=== PATIENT | male | born 1960 | race Caucasian/White ===

== ENCOUNTER 2018-11-23 14:38 | Observation (INO) | payer MEDICARE ==
[~2018-11-23] VITALS: Ht 190.5 cm; Wt 81.1 kg
[~2018-11-23 14:38] MED LIST: ALBU90OI INH; BUSP15 PO; PREG100 PO; RISP1 PO
[2018-11-23] MEDS ORDERED: AMIT10 PO (15:00)
[2018-11-23] MEDS ORDERED: LITH300C PO (15:00)
[2018-11-23] MEDS ORDERED: TRIDERM28.4 GM TOP (15:00)
[2018-11-23 15:55] LABS: BASOPHILS ABSOLUTE AUTO 0.06 K/mm3 (0.00-0.23); BASOPHILS PERCENT AUTO 1 % (0-2); EOSINOPHILS ABSOLUTE AUTO 0.06 K/mm3 (0.00-0.68); EOSINOPHILS PERCENT AUTO 1 % (0-6); Hematocrit 42.8 % (37.0-53.0); Hemoglobin 13.8 g/dL (13.5-17.5); IMMATURE GRAN ABSOLUTE AUTO 0.03 K/mm3 (0.00-0.10); IMMATURE GRAN PERCENT AUTO 0 % (0-1); LYMPHOCYTES ABSOLUTE AUTO 1.37 K/mm3 (0.84-5.20); LYMPHOCYTES PERCENT AUTO 11 % (21-46); MONOCYTES ABSOLUTE AUTO 0.78 K/mm3 (0.16-1.47); MONOCYTES PERCENT AUTO 7 % (4-13); Mean Corpuscular HGB 28.2 pg (26.0-34.0); Mean Corpuscular HGB Conc 32.2 g/dL (31.5-36.5); Mean Corpuscular Volume 87 fL (80-100); Mean Platelet Volume 11.5 fL (9.1-12.4); NEUTROPHILS ABSOLUTE AUTO 9.75 K/mm3 (1.96-9.15); NEUTROPHILS PERCENT AUTO 81 % (41-73); Platelet Count 224 K/mm3 (150-400); RDW Coefficient Variation 14.7 % (11.7-14.2); RDW Standard Deviation 47.2 fL (35.1-46.3); White Blood Cell Count 12.05 K/mm3 (4.00-11.30)
[2018-11-23 16:12] LABS: Alanine Aminotransfer (ALT/SGP 13 U/L (12-78); Albumin, Blood 3.6 g/dL (3.4-5.0); Albumin/Globulin Ratio 1.3 (0.8-1.8); Alk Phos 84 U/L (50-136); Anion Gap 2 mmol/L (6-16); Aspartate Aminotrans (AST/SGOT 9 U/L (12-37); Bilirubin, Total 0.4 mg/dL (0.1-1.0); Blood Urea Nitrogen 18 mg/dL (8-24); Bun/Creatinine Ratio 24.8 (12.0-20.0); CO2, Blood 29 mmol/L (21-32); Calcium, Blood 9.2 mg/dL (8.5-10.1); Chloride, Blood 107 mmol/L (98-108); Creatinine, Blood 0.73 mg/dL (0.60-1.20); Ethanol (Alcohol), Blood, Med <3 mg/dL; Globulin, Blood 2.8 g/dL (2.2-4.0); Glomerular Filtration Rate >60 (60-); Glucose, Blood 90 mg/dL (70-99); Potassium, Blood 3.6 mmol/L (3.5-5.5); Sodium, Blood 138 mmol/L (136-145); Total Protein, Blood 6.4 g/dL (6.4-8.2)
[2018-11-23 16:16] LABS: Acetaminophen, Random <2.0 ug/mL (10.0-30.0); Salicylate 4.7 mg/dL (2.8-20.0)
[2018-11-23 16:20] LABS: Lithium 1.06 mmol/L (0.60-1.20)
[2018-11-23 16:37] LABS: Source, Urine Clean Catch
[2018-11-23 16:46] LABS: Appearance, Urine Hazy (Clear); Bilirubin, Urine Neg (Neg); Blood, Urine 5+ (Neg); Color, Urine Amber (P-Yellow); Glucose Qualitative, Urine Neg (Neg); Ketones, Urine 3+ (Neg); Leukocyte Esterase, Urine 1+ (Neg); Nitrite, Urine Neg (Neg); Protein, Urine 2+ (Neg); Specific Gravity, Urine 1.025 (1.003-1.022); Urobilinogen, Urine 1+ (Normal)
[2018-11-23 17:11] LABS: Squamous Epithelial Cells Not Seen /hpf (Few)
[2018-11-23 17:12] LABS: Bacteria Rare /hpf; Mucus Light (0-Heavy); Red Blood Cells, Urine TNTC /hpf (0-2)
[2018-11-23 17:28] LABS: U Amphetamine Screen Not Detected; U Barbituate Screen Not Detected; U Benzodiazapine Screen Not Detected; U Buprenorphine Screen Not Detected; U Cannabinoids Screen DETECTED; U Cocaine Screen Not Detected; U Methadone Screen Not Detected; U Methamphetamine Screen Not Detected; U Opiates Screen Not Detected; U Oxycodone Screen Not Detected; U Phencyclidine Screen Not Detected; U Propoxyphene Screen Not Detected
[2018-11-23 23:17] LABS: Base Excess Venous 12.9 mmol/L; Bicarbonate Venous 34.9 mmol/L (24.0-30.0); PCO2 Venous 52.3 mmHg (38-42); PO2 Venous 172 mmHg (38-42); pH Blood Venous 7.46 (7.34-7.37)
[2018-11-23 23:28] LABS: Anion Gap 4 mmol/L (6-16); Blood Urea Nitrogen 20 mg/dL (8-24); Bun/Creatinine Ratio 28.7 (12.0-20.0); CO2, Blood 34 mmol/L (21-32); Calcium, Blood 8.3 mg/dL (8.5-10.1); Chloride, Blood 105 mmol/L (98-108); Glomerular Filtration Rate >60 (60-); Glucose, Blood 228 mg/dL (70-99); Potassium, Blood 3.4 mmol/L (3.5-5.5); Salicylate 3.8 mg/dL (2.8-20.0); Sodium, Blood 143 mmol/L (136-145)
--- NOTE | 2018-11-24 04:20 | NUR ---
ASSUMING CARE OF PT AT THIS TIME. PT REPORT RECEIVED AT BEDSIDE WITH OFFGOING ED NURSE, YANELY VIA TELEPHONE. WAITING FOR PT TRANSFER FROM ED TO ICU AT THIS TIME.
--- NOTE | 2018-11-24 04:50 | NUR ---
PT TRANSFERRED FROM ED TO ICU AT THIS TIME VIA ED BED.
--- NOTE | 2018-11-24 05:55 | NUR ---
POISON CONTROL POISON CONTROL CALLED ICU AT THIS TIME. POISON CONTROL REQUESTED STAT LIBRIUM LEVELS, STAT VBG, STAT CHEM 8, AND STAT EKG. WAITING FOR TAR HEEL AT THIS TIME.
--- NOTE | 2018-11-24 06:08 | NUR ---
SHIFT ASSESSMENT PT CALM, QUIET, COOPERATIVE, RESPONDS TO VERBAL STIMULI, SPONT OPENS EYES, A&O TO SELF, FOLLOWS COMMANDS, LETHARGIC, DROWSY, QUICKLY FALLS BACK ASLEEP WITH DECREASED STIMULI, UNABLE TO ANSWER MOST QUESTIONS. GARBLED, SLURRED, INCOMPREHENSIBLE SPEECH. SLOW TO RESPOND. UNABLE TO COMPLETE PT HX D/T PT'S INABILITY TO ANSWER QUESTIONS. PT ON SI PRECAUTIONS. PT STATES "I DON'T KNOW" TO CURRENT SI. SENSATION INTACT BUE'S. PT C/O N/T TO BLE'S. PT LUBIN. WEAKN MOVEMENT NOTED. PT ASSISTS WITH TURNS AND ABLE TO TURN SELF IN BED. PT STATES HX OF N/T TO BLE'S. NO S/SX OF PAIN/DISCOMFORT NOTED. PT DENIES PAIN/DISCOMFORT. LUNGS CLEAR, LOWER LOWER LOBES. SHALLOW BREATHING. PT ON RA. OXY SAT >95%. RR 12 TO 19. DENIES SOB. NO COUGHING. AFEBRILE. HR 50'S. SINUS BRADYCARDIA. BP STABLE - SEE VS FS. HIRAM COMPLETING EKG AT THIS TIME. STRONG PULSES. WARM, PINK SKIN. BILAT FT TRC EDEMA. WOUNDS BILAT FT - SEE PICS. HYPOACTIVE BT X4 QUADRANTS. ABD SOFT, NONTENDER, MILD DIST (PT STATES ABD DIST IS NORMAL). NO N/V. NO BM. PT VOIDS IN URINAL. NO UO AT THIS TIME. PIV X2. SODIUM BICARB AT 150 ML/HR. PER REPORT - SODIUM BICARB DRIP TO BE D/C AFTER THIS BAG. SMALL BRAKE FORM OPERATOR IN ROOM COMPLETING STAT LABS. POISON CONTROL PLANNING TO CALL ICU THIS AM FOR LAB RESULTS AND EKG RESULTS. WILL CONT TO MONITOR PT AND WILL PROVIDE BEDSIDE REPORT TO ONCOMING NURSE THIS AM.
[2018-11-24 06:22] LABS: Base Excess Venous 10.6 mmol/L; Bicarbonate Venous 32.9 mmol/L (24.0-30.0); PCO2 Venous 43.8 mmHg (38-42); PO2 Venous 48.6 mmHg (38-42)
[2018-11-24 06:44] LABS: Anion Gap 4 mmol/L (6-16); Blood Urea Nitrogen 18 mg/dL (8-24); Bun/Creatinine Ratio 27.7 (12.0-20.0); CO2, Blood 33 mmol/L (21-32); Calcium, Blood 8.4 mg/dL (8.5-10.1); Chloride, Blood 106 mmol/L (98-108); Creatinine, Blood 0.65 mg/dL (0.60-1.20); Glomerular Filtration Rate >60 (60-); Glucose, Blood 114 mg/dL (70-99); Potassium, Blood 3.2 mmol/L (3.5-5.5); Sodium, Blood 143 mmol/L (136-145)
--- NOTE | 2018-11-24 06:52 | NUR ---
DR. BENÍTEZ CALLED DR. BENÍTEZ AT 0645. DR. BENÍTEZ CALLED ICU BACK AT THIS TIME. INFORMED DR. BENÍTEZ OF AM LABS. DR. BENÍTEZ ORDERD POTASSIUM CHLORIDE 40 MEQ IVPB. WAITING FOR MEDICATION FROM PHARMACY AT THIS TIME.
[2018-11-24 06:54] LABS: Lithium 0.63 mmol/L (0.60-1.20)
--- NOTE | 2018-11-24 07:30 | NUR ---
AM ASSESSMENT: PT SLEEPS WHEN UNDISTURBED, BUT AWAKENS EASILY TO VERBAL STIMULI. PT ORIENTED TO SELF/PLACE. UNABLE TO STATE DATE. ABLE TO FOLLOW SIMPLE DIRECTIONS. PT WITH CONTINUOUS STUTTER (PT REPORTS WORSE THAN BASELINE), AND PT HAS DIFFICULTY COMPLETING HIS THOUGHTS TO ANSWER QUESTIONS. APPEARS TO BE WORD SEARCHING. PT REPORTS HE DOES STILL HAVE FEELINGS OF WANTING TO HARM HIMSELF. PT MENTIONS SEVERAL TIMES THAT HE DOES NOT LIKE HAVING TO STAY AT A "[facility] THIS RN INQUIRED WHY HE FELT THIS WAY AND THE PT STATES, "I DRESS LIKE A WOMAN." PT REPORTS HE WANTS TO BE CALLED JACKIE WHEN ASKED. SOCIAL SERVICE CONSULT PLACED FOR ADD'L POSSIBLE RESOURCES FOR LIVING SITUATION. UNABLE TO COMPLETE HEALTH HX/MEDS, AND COMPLETE TEL-PYSCH AT THIS TIME PT IS STILL HAVING DIFFICULTY WITH SPEECH AND COMPLETE MOST THOUGHTS. ROOM HAS BEEN CLEARED FOR SUICIDE PRECAUTIONS AND PT ARE BEING MONITORED VIA CENTRAL MONITORING SYSTEM. LUNGS ARE CLEAR T/O BILATERALLY. SATS >90% ON RA. HR REGULAR, SB 40-50'S. PT WITH PROLONGED QT, WHICH CAN BE A DIRECT RESULT OF O/D ON LYRICA (PER POSION CONTROL). ALSO NEED TO WATCH FOR SEVERE YAMILA, WIDENING QRS. NO VOID YET. URINAL PLACED AT THE BEDSIDE. CALL LIGHT WITHIN REACH. PT ENCOURAGED TO USE IT, HE HAS CALLED OUT FOR NEEDS THUS FAR. -FULL CODE STATUS -CONTINUE TO MONITOR VIA CENTRAL MONITORING STATION -TELE-PYSCH CONSULT WHEN PT ABLE -MONITOR FOR ABOVE CARDIAC CONCERNS
--- NOTE | 2018-11-24 14:00 | NUR ---
PT UPDATE: PRECOMMITTMENT WET MIXER HERE TO ASSESS PT. DISCUSSED WITH HER WHAT PT HAS SHARED WITH THIS RN ABOUT CONTINUED SI. SHE REPORTS SHE WILL BE BACK TOMORROW TO CHECK ON PT AND PROGRESSION. PT SHARED WITH HER THAT ONE OF HIS DR'S RECOMMENDED THAT HE BE COMMITTED FOR 6 MONTHS.
--- NOTE | 2018-11-24 17:24 | NUR ---
SHIFT SUMMARY: PT MENTATION SLIGHTLY IMPROVING. PT CONTINUES TO CONTINUOUSLY STUTTER WITH SPEECH, HOWEVER, PT IS ABLE TO GET OUT HALF SENTENCES IN BETWEEN STUTTERING, INSTEAD OF ONE WORD. PT SEEMS THOUGH HE IS ABLE TO COMPLETE THOUGHTS EASIER, HOWEVER, CONTINUES TO WORD SEARCH OR STATE HE IS HAVING DIFFICULTY SPEAKING WHAT HE IS THINKING. PT CONTINUES TO REPORT SI, AND REPORTS IF HE WERE TO BE DISCHARGED THAT HE WOULD HURT HIMSELF AGAIN. TELE-PYSCH CONSULT NOT COMPLETE PT WOULD HAVE DIFFICULTY ANSWERING THE QUESTIONS. LUNGS REMAIN CLEAR, SATS >90% ON RA. HR REGULAR, SB 50'S RANGE. QT NOT LONG THIS EVENING. PT VOIDS CLEAR, YELLOW URINE PER URINAL. -2 HOLD -FULL CODE -PENDING PYSCH CONSULT
--- NOTE | 2018-11-24 19:04 | NUR ---
REPORTED OFF TO GEORGE VALDIVIA WHOM WILL ASSUME CARE OF THIS PT.
--- NOTE | 2018-11-24 19:15 | NUR ---
ASSUMING CARE OF PT AT THIS TIME. PT REPORT RECEIVED AT BEDSIDE WITH OFFGOING NURSE, AARON VAZQUEZ. PT LAYING IN BED, WATCHING TELEVISION UPON ENTERING THE ROOM. VS STABLE - SEE VS FS. PT DOES NOT APPEAR TO BE IN DISTRESS AT THIS TIME. WILL REVIEW PLAN OF CARE.
--- NOTE | 2018-11-24 19:30 | NUR ---
PT REPORT PROVIDED TO ONCOMING NURSE, TRACI VAZQUEZ. WAITING FOR PT TRANSFER FROM ICU TO PCU AT THIS TIME.
--- NOTE | 2018-11-24 21:35 | NUR ---
PT ARRIVED TO ROOM PCU 8 FROM ICU 15. PT ALERT, SLOW TO RESPOND. PT IS NOTED TO HAVE DIFFICULTY W/SPEECH; STUTTER PRESENT, PT ALSO HAVING DIFFICULTY FINDING WORDS. PT REP "I CAN'T TAKLK THAT GOOD RIGHT NOW, SINCE THIS HAPPENED" PT REP FEELING SAFE IN HOSPITAL, WHEN ASKED IF CURRENTLY HAVING SI, PT STATES "I WILL DO IT AGAIN IF I LEAVE HERE" PT REP HAVING CONVERSATION W/"THAT LADY" UNABLE TO CONFIRM WHO (MD? RN?) R/T BEING PLACED FOR INPT TX FOR 6 MONTHS. PT VERBALIZED RELIEF W/POSSIBILITY OF PLACEMENT FOR ONGOING TX. PT ORIENTED TO ROOM, CALL LIGHT AND SAFETY AND REMOTE MONITORING. BED ALARM ON, WILL CONT TO SAFETLY MONITOR.
--- NOTE | 2018-11-25 01:03 | NUR ---
PT SLEEPING IN BED, AWOKE TO VERBAL STIMULI. PT VSS. SPEECH SLOW W/STUTTER, PT CONT TO HAVE DIFFICULTY FINDING WORDING. PT DENIES PAIN, REQ CRANBERRY JUICE. DENIES NEED TO VOID. PT AGAIN VERBALIZED CONCERNS R/T PREV CONVERSATION R/T PLACEMENT TO INPT FACILITY. PT APPEARS ANXIOUS AT POSSIBILITY OF BEING D/C BACK TO [facility] VS REC INPT TX. PT REASSURED THEY ARE SAFE HERE AND PLAN FOR MD TO FOLLOW UP IN AM. BED ALARM ON, W/REMOTE MONITORING CONT. WILL CONT TO MONITOR CLOSELY.
[2018-11-25 04:15] LABS: Anion Gap 7 mmol/L (6-16); Blood Urea Nitrogen 16 mg/dL (8-24); Bun/Creatinine Ratio 25.6 (12.0-20.0); CO2, Blood 27 mmol/L (21-32); Calcium, Blood 8.3 mg/dL (8.5-10.1); Chloride, Blood 108 mmol/L (98-108); Creatinine, Blood 0.62 mg/dL (0.60-1.20); Glomerular Filtration Rate >60 (60-); Glucose, Blood 86 mg/dL (70-99); Potassium, Blood 3.7 mmol/L (3.5-5.5); Sodium, Blood 142 mmol/L (136-145)
--- NOTE | 2018-11-25 05:47 | NUR ---
PT VSS T/O NIGHT. PT APPEARED TO SLEEP FOR MOST OF NIGHT, AWAKING TO VERBAL STIMULI. PT IS SLOW TO RESPOND, COOPERATIVE W/CARE. PT CONT TO HAVE STUTTER W/WORD SEARCHING, REP NEW SISNCE OD EVENT. PT VERBALIZED FEELING SAFE IN HOSPITAL; ALTHOUGH DID STATE SEVERAL TIMES PLAN TO REPEAT SUICIDE ATTEMPT IF D/C FROM HOSP SETTING. PT HAD NO C/O PAIN/N/V, DID NOT GET OOB THIS SHIFT. BED ALARM ON, REMOTE MONITORING CONT. WILL CONT TO CLOSELY MONITOR UNTIL REP GIVEN TO ONCOMING RN.
--- NOTE | 2018-11-25 10:24 | NUR ---
NOTE PT AWAKE AND ALERT. NEEDS FREQUEST REMINDING THAT SHE ISN'T GOING TO BE "COMMITTED" TODAY. 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 REVIEWED SUICIDE PRECAUTIONS FOR HER SAFETY. BATHROOM DOOR LOCKED, PAPER SCRUBS, PLASTIC AND PAPER MEAL TRAY, VIDEO MONITORING. SHE DIDN'T LIKE HEARING THAT SHE WAS BEING WATCHED REMOTELY. SHE CURLED UP IN A BALL AND COVERED HER HEAD WITH A BLANKET. TALKED WITH JACKIE ABOUT DR HERNANDEZ ORDER TO TRANSFER TO A MEDICAL BED AND REMOVING TELEMETRY. RECEIVING NURSE, JOHN, NOTIFIED OF PT NEED FOR SUICIDE PRECAUTIONS TO PREPARE THE ROOM. CONTINUE POT.
--- NOTE | 2018-11-25 10:50 | NUR ---
[facility] STAFF HERE. [facility] ST[facility] HERE TO SEE PT. NOTIFIED OF TRANSFER TO RM 349. CONTINUE POT.
--- NOTE | 2018-11-25 11:04 | NUR ---
TRANSFER TO RM 349 PT REPORT GIVEN TO RECEIVING RN, JOHN. CONTINUE POT.
--- NOTE | 2018-11-25 11:27 | NUR ---
HANDOFF/TRANSFER REPORT RECEIVED HANDOFF REPORT FROM PCU NURSE DACIA. PT ADMITTED FOR A SUICIDE ATTEMPT. HAS A HISTORY OF SUICIDE ATTEMPTS. A&O TO SELF, DATE, AND TIME. PT LIVES AT [facility]. HAS NO TOES BLE. PT IDENTIFIES A FEMALE AND GOES BY THE NAME, "JACKIE". PT TRANSFERED FROM ICU TO PCU, NOW TO MED FLOOR. PT USES A URINAL AND SO FAR HAS NOT AMBULATED WHILE ADMITTED THIS TIME. DR. BAKER IS AWARE OF THIS PT, THE REFERAL HAS BEEN CALLED IN. VIDEO MONITORING IS IN PLACE AND FUNCTIONING. PT TRANSFERED WITH NO ADVERSE EVENTS. ORIENTATED TO ROOM AND UNIT.
--- NOTE | 2018-11-25 17:29 | NUR ---
SHIFT SUMMARY PT IDENTIFIES A FEMALE, "JACKIE". 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 PT STATES THAT SHE FEELS IT IS TIME TO SEEK HELP FOR HER DEPRESSION SO THAT SHE DOES NOT END HER OWN LIFE. PT DID ASK FOR A SANDWICH TODAY. 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 SHE IS BEING VIDEO MONITORED BY HOSPITAL PERSONEL. POISON CONTROL CALLED FOR AN UPDATE ON THE PATIENT'S CONDITION. [facility] DID ASSESS THE PT DOWN IN PCU BEFORE ARRIVAL ON FLOOR. DR. BAKER HAS BEEN INFORMED OF THE NEED FOR REFERAL AND ASSESSMENT. PT HAS BEEN COOPERATIVE WITH CARE, RESPONSIVE BUT WITHDRAWN.
--- NOTE | 2018-11-26 06:11 | NUR ---
0600 TUBE FEEDING ENTRY IN ERROR. THIS PT HAD NO TUBE FEEDING.
--- NOTE | 2018-11-26 06:16 | NUR ---
11/26/18 0615 VITALS STABLE. PT ON SUICIDE WATCH VIA SI SUPERVISOR LIQUID YEAST VIDEO CONTINUOUSLY. MANDI WAS IN CONTACT WITH RN ALL SHIFT SUICIDE SUPERVISOR LIQUID YEAST. PT SLEPT ON AND OFF ALL SHIFT. PT STATES HE HAS "NO CONTROL" OF HIS DESIRE TO COMMIT SUICIDE ATTEMPTS. ENVIRONMENT SECURED FROM HARMFUL ITEMS.
[2018-11-26] MEDS ORDERED: GABA600 PO (08:27)
--- NOTE | 2018-11-26 08:53 | NUR ---
PT SI PT. CONFIRMED WITH VIDEO MONITOR THAT PT IS ON MONITOR AT THIS TIME.
--- NOTE | 2018-11-26 09:19 | NUR ---
DR FALLON IN TO SEE PT. DR FALLON NOTIFIED OF PT HOME MEDICATIONS NOT ORDERED. WILL NOTIFY PERI RYDER WHEN HE SEES PT.
--- NOTE | 2018-11-26 13:32 | NUR ---
DR RYDER INTO SEE PT.
--- NOTE | 2018-11-26 16:50 | NUR ---
SHIFT SUMMARY- A/O ORIENTED. PT DENIES ANY COMPLAINTS THIS SHIFT. PT DOES REPORT THAT HE DOES HAVE SUICIDAL THOUGHTS. DR RYDER CONSULTED AND RISPERIDAL ORDERED. PT NEEDING INPATIENT PSYCH. PT DOES IDENTIFY "JACKIE". LS CLEAR, ON RA. VSS. PT STANDS AT BEDSIDE INDEP TO USE URINAL, STATES CANNOT WALK DUE TO ALL TOES AMPUTATING. PT HAS BEEN VERY CONCERNED ABOUT BELONGINGS AT [facility], DOUG HERNANDEZ NOTIFIED AND REPORTS SHE WILL CALL OVER THERE. NO OTHER ACUTE CHANGES THIS SHIFT.
--- NOTE | 2018-11-26 20:19 | NUR ---
11/26/182019 RN CONFIRMED WITH EVANS Atkinson, VIDEO ADVERTISEMENT COMPOSITOR, THAT SHE HAS THIS PT ON 24 HOUR SUICIDE WATCH AND IS DOING APPROPRIATE DOCUMENTATION.
[2018-11-27 05:36] LABS: Anion Gap 5 mmol/L (6-16); Blood Urea Nitrogen 19 mg/dL (8-24); CO2, Blood 27 mmol/L (21-32); Calcium, Blood 8.1 mg/dL (8.5-10.1); Chloride, Blood 109 mmol/L (98-108); Creatinine, Blood 0.63 mg/dL (0.60-1.20); Glomerular Filtration Rate >60 (60-); Glucose, Blood 87 mg/dL (70-99); Phosphorus, Blood 3.2 mg/dL (2.5-4.9); Potassium, Blood 3.7 mmol/L (3.5-5.5); Sodium, Blood 141 mmol/L (136-145)
--- NOTE | 2018-11-27 07:12 | NUR ---
11/27/18 0610 CONTINUOUS VIDEO SUICIDE WATCH IN EFFECT. PT SLEPT WELL THIS SHIFT. DENIES ANY PAIN OR S/S. VITALS STABLE. EATING AND DRINKING WELL. STANDS TO VOID BUT OTHERWISE STAYS IN BED. CONCERNED ABOUT BELONGINGS AT [facility] AND DAY SHIFT RN IS AWARE AND WILL F/U TODAY.
--- NOTE | 2018-11-27 12:49 | NUR ---
PT CONTINUES TO BE VERY CONCERNED ABOUT HIS BELONGINGS AT [facility]. SPOKE WITH [facility] WHO REPORTS THEY WILL KEEP HIS BELONGINGS ONLY FOR 30 DAYS AND THEY ARE UNABLE TO BRING TO THE HOSPITAL. SPOKE WITH NURSE TRANSITION ERIN WHO RECOMMENDED MAYBE TALKING TO [employer] OR PT ADVOCATE, ATTEMPTED TO CALL BOTH BUT WERE UNAVAILABLE. PT REPORTS HE DOES NOT HAVE ANY FRIENDS OR FAMILY TO FINANCIAL UNDERWRITER HIS BELONGINGS. WILL F/U WITH ERIN FOR SUGGESTIONS.
--- NOTE | 2018-11-27 13:13 | NUR ---
DR RYDER INTO SEE PT.
--- NOTE | 2018-11-27 16:51 | NUR ---
SHIFT SUMMARY- PT A/OX4. PT PLEASANT AND COOPERATIVE T/O SHIFT. PT MEDICATED X1 FOR HEADACHE. PT CONT TO BE CONCERNED ABOUT PERSONAL BELONGINGS AT [facility], THEY WILL HOLD FOR 30 DAYS. PT AWAITING INPATIENT PSYCH. NO OTHER ACUTE CHANGES THIS SHIFT.
--- NOTE | 2018-11-28 05:07 | NUR ---
SHIFT SUMMARY PT ALERT AND ORIENTED. SLOW TO RESPOND AT TIMES BUT APPEARS TO ANSWER QUESTIONS APPROPRIATELY. PT TRANSGENDER AND IDENTIFIES A FEMALE. SHE REMAINED IN HER ROOM THROUGHOUT THE NIGHT, REQUESTED FREQUENT SNACKS. ATE AND DRANK WELL. DENIED ANY PAIN. BILATERAL AMPUTATIONS OF ALL TOES. PT DID NOT GET UP THIS EVENING BUT PER REPORT PT ABLE TO AMBULATE OKAY DESPITE THIS. PT USED URINAL WHILE IN THE BED. PT CONTINUES TO REPORT THAT SHE BELIEVES IF GIVEN THE OPPORTUNITY SHE WOULD ATTEMPT TO HURT HERSELF AGAIN. PT AWAKE A GOOD PORTION OF THE NIGHT. OTHERWISE NO ACUTE CHANGES. VSS. WILL CONTINUE TO MONITOR AND REPORT TO DAY RN.
--- NOTE | 2018-11-28 08:34 | NUR ---
PT MONITORING VERIFIED WITH DUNCAN, PT MONITOR THAT PT IS VISABLE IN ROOM. WILL CONTINUE TO MONITOR PT.
--- NOTE | 2018-11-28 10:54 | NUR ---
PT PHONE USE PT SUPERVISED BY THIS RN WITH PHONE TO CALL [facility] & TO ACTIVATE CREDIT CARD. ITEMS LOCKED UP AFTER USE.
[2018-11-28] MEDS ORDERED: RISP1 PO (13:42)
--- NOTE | 2018-11-28 15:29 | NUR ---
PT DISCHARGED. PT DISCHARGED AT 1529. PT IN STABLE CONDITION WITH VSS. PT EDUCATED ON DC INSTRUCTIONS & INSTRUCTED THAT A T[facility] WILL BE HERE TO PICK HIM UP AND TAKE HIM TO GET HIS PRESCRIPTION & THEN TO [facility]. PT STATED HE UNDERSTOOD INSTUCTIONS. PT WHEELED OUT TO THE ER LOBBY TO WAIT FOR TAXI BY THIS RN.
== END 2018-11-28 15:30 | disposition home or self-care (01) ==
LOC: ER 14:38 → EOR 14:39 → ER 14:39 → EOR 14:39 → MEDS 17:22 → EOR 17:22 → ICUW 22:25 → MEDS 11-24 04:55 → ICUW 11-24 18:11 → PCU 11-24 20:58 → MEDS 11-25 11:15 → ENPENDDIS 11-28 14:44 → MEDS 11-28 15:30
PROVIDERS: Internal Medicine; Physician Assistant; ADMIT Emergency Medicine
DX: T42.6X2A Poisoning by other antiepileptic and sedative-hypnotic drugs, intentional self-harm, initial encounter (principal); F20.9 Schizophrenia, unspecified; R31.29 Other microscopic hematuria; E87.6 Hypokalemia; F64.9 Gender identity disorder, unspecified; L97.909 Non-pressure chronic ulcer of unspecified part of unspecified lower leg with unspecified severity; J45.909 Unspecified asthma, uncomplicated; F17.210 Nicotine dependence, cigarettes, uncomplicated; Z89.422 Acquired absence of other left toe(s); Z79.899 Other long term (current) drug therapy; Z59.0 Homelessness
CPT/HCPCS: 36415; 80048; 80053; 80069; 80178; 81001; 82803; 82947; 84443; 85025; 87086; 93005; 93010; 94640; 94760; 96365; 96366; 96372; 99285-25; G0378; G0480; J1650; J7070

== ENCOUNTER 2023-09-09 11:39 | Emergency (ER) | payer MEDICARE ==
[~2023-09-09] VITALS: Ht 188 cm; Wt 63.5 kg
[~2023-09-09 11:39] MED LIST changes: +AMIT10 PO; +GABA600 PO; +LITH300C PO; +TRIDERM28.4 GM TOP
[2023-09-09 11:42] VITALS: BP 132/95
== END 2023-09-09 14:50 | disposition home or self-care (01) ==
LOC: ER 11:39
DX: R44.0 Auditory hallucinations (principal); T73.0XXA Starvation, initial encounter; R23.1 Pallor; Z59.00 Homelessness unspecified; J45.909 Unspecified asthma, uncomplicated; F20.9 Schizophrenia, unspecified; F17.200 Nicotine dependence, unspecified, uncomplicated; Z79.899 Other long term (current) drug therapy
CPT/HCPCS: 99282

== ENCOUNTER 2023-09-22 07:17 | Emergency (ER) | payer MEDICARE ==
[~2023-09-22] VITALS: Ht 185.4 cm; Wt 63.5 kg
[2023-09-22 07:46] VITALS: BP 143/92
== END 2023-09-22 11:56 | disposition home or self-care (01) ==
LOC: ER 07:17
DX: M54.50 Low back pain, unspecified (principal); R29.898 Other symptoms and signs involving the musculoskeletal system; F20.9 Schizophrenia, unspecified; F17.200 Nicotine dependence, unspecified, uncomplicated; J45.909 Unspecified asthma, uncomplicated
CPT/HCPCS: 72100; 99283-25; A9270

== ENCOUNTER 2023-09-25 04:26 | Emergency (ER) | payer MEDICARE ==
[~2023-09-25] VITALS: Ht 188 cm; Wt 68.0 kg
[2023-09-25 04:54] VITALS: BP 122/90
== END 2023-09-25 06:43 | disposition home or self-care (01) ==
LOC: ER 04:26
DX: F20.9 Schizophrenia, unspecified (principal); J44.9 Chronic obstructive pulmonary disease, unspecified; F17.200 Nicotine dependence, unspecified, uncomplicated
CPT/HCPCS: 71046; 99284-25; A9270